=== PATIENT | female | born 1990 | race Caucasian/White ===

== ENCOUNTER 2018-01-08 19:18 | Emergency (ER) | payer OTHER ==
[~2018-01-08] VITALS: Ht 167.6 cm; Wt 98.0 kg
[2018-01-08 19:52] VITALS: BP 138/85
== END 2018-01-08 22:55 | disposition left against medical advice (07) ==
LOC: ER 19:18
DX: N89.8 Other specified noninflammatory disorders of vagina (principal); Z53.21 Procedure and treatment not carried out due to patient leaving prior to being seen by health care provider